=== PATIENT | female | born 1970 | race Caucasian/White ===

== ENCOUNTER 2024-02-11 10:30 | Emergency (ER) | payer BC ==
[~2024-02-11] VITALS: Ht 170.2 cm; Wt 66.7 kg
[2024-02-11 11:01] LABS: URINE HCG NEGATIVE (NEG)
[2024-02-11 11:03] LABS: BILIRUBIN,URINE NEGATIVE (Neg); CLARITY,URINE CLEAR (Clear); COLOR,URINE YELLOW (Yellow); GLUCOSE, URINE NEGATIVE (Neg); KETONES,URINE NEGATIVE (Neg); LEUKOCYTE ESTERASE ,URINE NEGATIVE (Neg); NITRITES, URINE NEGATIVE (Neg); OCCULT BLOOD,URINE MODERATE (Neg); PROTEIN,URINE NEGATIVE (Neg)
[2024-02-11 11:05] LABS: UA COLLECTION TYPE CLN CATCH MIDSTREAM
[2024-02-11 11:20] LABS: BASOPHILS # (AUTO) 0.1 X10'3 (0-0.2); BASOPHILS % (AUTO) 0.9 % (0-1); EOSINOPHILS # (AUTO) 0.1 X10'3 (0-0.9); EOSINOPHILS % (AUTO) 0.5 % (0-6); HEMATOCRIT 43.5 % (35.0-45.0); HEMOGLOBIN 14.5 g/dl (12.0-16.0); LYMPHOCYTES # (AUTO) 0.8 X10'3 (1.1-4.8); LYMPHOCYTES % (AUTO) 7.8 % (21-51); MEAN CORPUSCULAR HEMOGLOBIN 30.5 PG (27.0-31.0); MEAN CORPUSCULAR HGB CONC 33.4 g/dL (33.0-36.5); MEAN CORPUSCULAR VOLUME 91.4 FL (78-98); MEAN PLATELET VOLUME 8.2 FL (7.4-10.4); MONOCYTES # (AUTO) 0.7 X10'3 (0-0.9); MONOCYTES % (AUTO) 6.8 % (2-12); NEUTROPHILS # (AUTO) 8.8 X10'3 (1.8-7.7); PLATELET COUNT 271 X10'3 (140-440); RED BLOOD COUNT 4.75 X10'6 (4.20-5.60); RED CELL DISTRIBUTION WIDTH 13.6 % (11.5-14.5); WHITE BLOOD COUNT 10.4 X10'3 (4.5-11.0)
[2024-02-11 11:27] LABS: WBC,URINE 0-4 /HPF (0-4)
[2024-02-11 11:29] LABS: BACTERIA,URINE FEW /HPF (Neg); SQUAMOUS EPITHELIAL CELL,UR MANY /LPF (FEW)
[2024-02-11 11:31] LABS: MUCUS STRANDS FEW /LPF (Neg)
[2024-02-11 11:34] LABS: ALANINE AMINOTRANSFERASE 23 U/L (12-78); ALBUMIN 4.3 G/DL (3.4-5.0); ALKALINE PHOSPHATASE 49 IU/L (46-116); ANION GAP 11 (8-16); ASPARTATE AMINO TRANSFERASE 13 U/L (10-37); BILIRUBIN,TOTAL 1.2 MG/DL (0.1-1.0); BLOOD UREA NITROGEN 11 MG/DL (7-18); BUN/CREATININE RATIO 13.6 (10.0-20.0); CALCIUM 9.5 MG/DL (8.5-10.1); CHLORIDE 100 MMOL/L (99-107); CREATININE 0.81 MG/DL (0.40-0.90); GLUCOSE 109 MG/DL (70-104); LIPASE 15 U/L (16-77); POTASSIUM 3.7 MMOL/L (3.5-5.1); SODIUM 138 MMOL/L (135-145); TOTAL CARBON DIOXIDE 26.7 MMOL/L (24-32); TOTAL PROTEIN 8.4 G/DL (6.4-8.2); eCRCL 76 ML/MIN; eGFR 73 ML/MIN
[2024-02-11] MEDS: morphine 4 MG/ML inj SYRINge IV ONE (11:38)
[2024-02-11] MEDS: normal saline 1000ML IV soln IVB ONE (11:39)
[2024-02-11 11:43] VITALS: TEMP 98.2
[2024-02-11] MEDS: diphenhydrAMINE 50 mg/ml inj IV ONE (11:55)
[2024-02-11] MEDS: proCHLORperazine 10 MG/2 ml inj IV ONE (11:56)
[2024-02-11] MEDS ORDERED: iohexol 300mg/ml 100ml inj. ONE (12:06)
[2024-02-11 13:45] VITALS: BP 133/90; PULSE 71; RESP 16; O2SAT 99
[2024-02-11] MEDS: piperacillin/tazo 4.5gm/100ml 100 ML IV STA (13:46)
[2024-02-11] MEDS ORDERED: HYDR-3964 PO (13:51)
[2024-02-11] MEDS ORDERED: ONDA-245 PO (13:51)
[2024-02-11] MEDS ORDERED: AMOX-580 PO (13:52)
== END 2024-02-11 15:55 | disposition home or self-care (01) ==
LOC: ER 10:31
DX: K57.92 Diverticulitis of intestine, part unspecified, without perforation or abscess without bleeding (principal); Z88.2 Allergy status to sulfonamides; Z79.2 Long term (current) use of antibiotics; Z79.1 Long term (current) use of non-steroidal anti-inflammatories (NSAID); Z79.899 Other long term (current) drug therapy
CPT/HCPCS: 36415; 74177; 80053; 81001; 81025; 83690; 85025; 96361; 96365; 96366; 96375; 99285; J2270; J2543; J7030; Q9967